=== PATIENT | female | born 2000 | race African-American/Black ===

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

== ENCOUNTER 2018-07-13 11:36 | Emergency (ER) | payer SELFPAY ==
[2018-07-13] MEDS ORDERED: IBUPROFEN 600 MG TABLET PO ONE (12:21)
--- NOTE | 2018-07-13 12:23 | ER Document Report ---
Addendum entered and electronically signed by CALVIN CIFUENTES NP 07/13/18 13:47: Discharge - Discharge Clinical Impression: Pyelonephritis Condition: Stable Disposition: HOME, SELF-CARE Instructions: Pyelonephritis ([facility]) Additional Instructions: Take medication as prescribed. Drink lots of fluids. Follow-up if not better in 2-3 days, sooner for worsening pain, fever, persistent vomiting, trouble cont rolling bowels or bladder, weakness, any further concerns. Prescriptions: Cephalexin Monohydrate [Keflex 500 mg Capsule] 500 mg PO Q6H 10 Days #40 capsule Naproxen [Naprosyn] 500 mg PO BID #20 tablet Phenazopyridine HCl [Pyridium 200 mg Tablet] 200 mg PO TID #9 tablet Forms: Return to Work, Parent Work Note Referrals: [facility] [Provider Group] - Follow up as needed Original Note: ED Neck/Back Problem - General Chief Complaint: Back Pain Stated Complaint: BACK PAIN Time Seen by Provider: 07/13/18 12:17 Mode of Arrival: Ambulatory Information source: Patient TRAVEL OUTSIDE OF THE [place] IN LAST 30 DAYS: No - HPI Patient complains to provider of: Pain, Lower back Notes: Patient is here with complaints of low back pain. She also complains of some dysuria, urinary frequency. She states that the urinary symptoms started approximately 3 days ago she started having some lower back pain mainly on the right yesterday. She complains of some mild suprapubic pain as well. No nausea, vomiting, diarrhea. No fevers. No vaginal bleeding or discharge. No rash. No injury. Pain in her back is not worse with movement, but does seem to be worse if she gets adrian. She denies any numbness, tingling, weakness to her legs. She is not on blood thinning medications. She denies IV drug use. She denies any numbness, tingling, weakness. No bowel or bladder dysfunction. No chest pain or shortness of breath. She denies any other complaints at this time. Pain in her back is constant, moderate, worse with getting adrian, nothing seems to make it better. - Related Data Allergies/Adverse Reactions: No Known Allergies Allergy (Verified 07/13/18 11:46) Past Medical History - Social History Smoking Status: Unknown if Ever Smoked Family History: Arthritis, Malignancy, Thyroid Disfunction Patient has suicidal ideation: No Patient has homicidal ideation: No Renal/ Medical History: Denies: Hx Peritoneal Dialysis - Immunizations Immunizations up to date: Yes Hx Diphtheria, Pertussis, Tetanus Vaccination: Yes Review of Systems - Review of Systems -: Yes All other systems reviewed and negative Physical Exam - Vital signs Vitals: Temp Pulse Resp BP Pulse Ox 99.5 F 93 16 114/90 H 98 07/13/18 11:48 07/13/18 11:48 07/13/18 11:48 07/13/18 11:48 07/13/18 11:48 - Notes Notes: GENERAL: alert, cooperative, nontoxic, no distress. HEAD: normocephalic, atraumatic EYES: conjunctiva pink without discharge, no external redness or swelling. EARS: no external swelling, no external redness NOSE: atraumatic, no external swelling MOUTH/THROAT: mucous membranes moist and pink, posterior pharynx without erythema, swelling, exudate. No trismus or drooling. NECK: soft, supple, full range of motion, no meningismus. CHEST: no distress, lungs clear and equal throughout. No wheezing, rales, rhonchi. CARDIAC: regular rate and rhythm, no murmur, normal capillary refill, normal pulses. No peripheral edema noted. ABDOMEN: soft, mild suprapubic tenderness to palpation. No rebound tenderness or guarding. No right lower quadrant tenderness. no pusatile mass. BACK: Mild right-sided CVA tenderness to percussion. Full range of motion. No rash. No midline tenderness, step-offs or crepitus. EXTREMITIES: full range of motion of all extremities. No redness, no swelling. NEURO: alert and oriented A&O x 3, no focal deficits, full range of motion of all extremities. 5 out of 5 flexion and extension of the lower extremities bilaterally. Patellar and Achilles deep tendon reflexes are +2 bilaterally. Normal sensation with no saddle anesthesia. Patient can dorsiflex the great toes bilaterally. PYSCH: appropriate mood, affect. Patient is cooperative. SKIN: pink, warm, dry, no rash. Course - Re-evaluation Re-evalutation: 07/13/18 13:41 Patient is feeling better at this time. Patient here with complaints of dysuria, frequency, suprapubic pain, low back pain. She does have some mild CVA tenderness. Urinalysis shows signs of significant urinary tract infection. Patient likely has early pyelonephritis. She is not vomiting, she is not toxic appearing, she is afebrile and I do believe that she is okay for discharge home with outpatient therapy. She was given a dose of antibiotics in the emergency department. She was also given some ibuprofen. Urine culture has been ordered. She will be discharged home on Keflex, Pyridium, Naprosyn. Instructions to drink plenty of fluids. Follow-up if not improving in the next 2-3 days, but follow-up sooner for worsening pain, high fever, persistent vomiting, or for any further concerns. Patient has no other signs of cauda equina, epidural abscess/bleed, discitis, osteomyelitis. The patient's emergency department workup and current diagnosis were explained to the patient and or family. Follow-up instructions were provided. Medications if prescribed were discussed. Instructions for when to return to the emergency department including specific worrisome symptoms were discussed with the patient and/or family. - Vital Signs Vital signs: Temp Pulse Resp BP Pulse Ox 99.5 F 93 16 114/90 H 98 07/13/18 11:48 07/13/18 11:48 07/13/18 11:48 07/13/18 11:48 07/13/18 11:48 - Laboratory Laboratory results interpreted by ca: 07/13/18 12:20 Urine Protein 100 H Urine Ketones TRACE H Urine Blood LARGE H Urine Nitrite POSITIVE H Urine Urobilinogen 2.0 H Ur Leukocyte Esterase MODERATE H Urine Ascorbic Acid 40 H Discharge - Discharge Clinical Impression: Pyelonephritis Condition: Stable Disposition: HOME, SELF-CARE Instructions: Pyelonephritis ([facility]) Additional Instructions: Take medication as prescribed. Drink lots of fluids. Follow-up if not better in 2-3 days, sooner for worsening pain, fever, persistent vomiting, trouble controlling bowels or bladder, weakness, any further concerns. Prescriptions: Cephalexin Monohydrate [Keflex 500 mg Capsule] 500 mg PO Q6H 10 Days #40 capsule Naproxen [Naprosyn] 500 mg PO BID #20 tablet Phenazopyridine HCl [Pyridium 200 mg Tablet] 200 mg PO TID #9 tablet Forms: Return to Work Referrals: [facility] [Provider Group] - Follow up as needed
[2018-07-13 13:02] LABS: APPEARANCE,URINE CLOUDY; BILIRUBIN,URINE NEGATIVE (NEGATIVE); COLOR,URINE AMBER; GLUCOSE, URINE NEGATIVE (NEGATIVE); KETONES,URINE TRACE mg/dL (NEGATIVE); LEUKOCYTE ESTERASE,URINE MODERATE (NEGATIVE); NITRITE,URINE POSITIVE (NEGATIVE); PROTEIN,URINE 100 mg/dL (NEGATIVE); URINE SPECIFIC GRAVITY 1.015
[2018-07-13] MEDS ORDERED: CEPHALEXIN 500 MG CAPSULE PO ONE (13:26)
[2018-07-13 13:57] VITALS: BP 111/55
== END 2018-07-13 13:51 | disposition home or self-care (01) ==
LOC: ER 11:36
DX: N12 Tubulo-interstitial nephritis, not specified as acute or chronic (principal); M54.5 Low back pain; R30.0 Dysuria; R35.0 Frequency of micturition; R10.30 Lower abdominal pain, unspecified
CPT/HCPCS: 81001; 81025; 87086; 87088; 87186; 99283

== ENCOUNTER 2018-09-22 18:42 | Emergency (ER) | payer SELFPAY | END 2018-09-22 20:35 | disposition left against medical advice (07) | LOC: ER 18:42 | DX: Z53.21 Procedure and treatment not carried out due to patient leaving prior to being seen by health care provider (principal) ==

== ENCOUNTER 2019-03-28 08:53 | Emergency (ER) | payer SELFPAY ==
--- NOTE | 2019-03-28 10:02 | ER Document Report ---
ED Medical Screen (RME) - General Chief Complaint: Breast Problem Stated Complaint: FOREIGN BODY Time Seen by Provider: 03/28/19 09:59 Mode of Arrival: Ambulatory Information source: Patient Notes: Patient presents emergency department with complaints that her left breast nipple has a piercing stuck in it. She reports she had a barbell placed a month ago. She reports yesterday she noticed that the skin had overgrown it and it is stuck. She tried to push it through but was unable to. I have greeted and performed a rapid initial assessment of this patient. A comprehensive ED assessment and evaluation of the patient, analysis of test results and completion of the medical decision making process will be conducted by additional ED providers. TRAVEL OUTSIDE OF THE [place] IN LAST 30 DAYS: No - Related Data Allergies/Adverse Reactions: No Known Allergies Allergy (Verified 09/22/18 18:51) Past Medical History Renal/ Medical History: Denies: Hx Peritoneal Dialysis - Immunizations Immunizations up to date: Yes Hx Diphtheria, Pertussis, Tetanus Vaccination: Yes Physical Exam - Vital signs Vitals: Temp Pulse Resp BP Pulse Ox 98.6 F 105 H 16 131/77 H 100 03/28/19 08:59 03/28/19 08:59 03/28/19 08:59 03/28/19 08:59 03/28/19 08:59 Course - Vital Signs Vital signs: Temp Pulse Resp BP Pulse Ox 98.6 F 105 H 16 131/77 H 100 03/28/19 08:59 03/28/19 08:59 03/28/19 08:59 03/28/19 08:59 03/28/19 08:59
[2019-03-28] MEDS ORDERED: LIDOCAINE 1% INJ (10 MG/ML) 10 ML MDV INJ ONE (12:43)
--- NOTE | 2019-03-28 12:44 | ER Document Report ---
HPI - HPI Time Seen by Provider: 03/28/19 09:59 Pain Level: 3 Context: Patient is a 18-year-old female who presents emergency department with a left nipple piercing stuck in her breast. She states that she had the piercing done just prior to Thanksgiving. Denies any fever, body aches, chills. Patient states that she was trying to push it through, but the other and is stuck. - CONSTITUTIONAL Constitutional: DENIES: Fever, Chills - EENT EENT: DENIES: Sore Throat, Ear Pain - NEURO Neurology: DENIES: Headache, Weakness, Vision blurred - CARDIOVASCULAR Cardiovascular: DENIES: Chest pain - RESPIRATORY Respiratory: DENIES: Trouble Breathing, Coughing - GASTROINTESTINAL Gastrointestinal: DENIES: Abdominal Pain, Nausea, Patient vomiting, Diarrhea - REPRODUCTIVE Reproductive: DENIES: : - DERM Skin Color: Normal Notes: Nipple piercing stuck in left breast Past Medical History - General Information source: Patient - Social History Smoking Status: Unknown if Ever Smoked Family History: Arthritis, Malignancy, Thyroid Disfunction Patient has suicidal ideation: No Patient has homicidal ideation: No Renal/ Medical History: Denies: Hx Peritoneal Dialysis - Immunizations Immunizations up to date: Yes Hx Diphtheria, Pertussis, Tetanus Vaccination: Yes Vertical Provider Document - CONSTITUTIONAL Agree With Documented VS: Yes Exam Limitations: No Limitations General Appearance: No Apparent Distress - INFECTION CONTROL TRAVEL OUTSIDE OF THE [place] IN LAST 30 DAYS: No - HEENT HEENT: Atraumatic, Normocephalic, PERRLA - NECK Neck: Normal Inspection - RESPIRATORY Respiratory: No Respiratory Distress - CARDIOVASCULAR Cardiovascular: Regular Rate, Regular Rhythm - REPRODUCTIVE Notes: Left breast nipple piercing noted, hanging out of the left side of her nipple. - MUSCULOSKELETAL/EXTREMETIES Musculoskeletal/Extremeties: FROM - NEURO Level of Consciousness: Awake, Alert, Appropriate Motor/Sensory: No Motor Deficit, No Sensory Deficit - DERM Integumentary: Warm, Dry, No Rash Course - Re-evaluation Re-evalutation: 03/28/19 13:11 Patient's left breast near the nipple area was anesthetized with 10 mils of 1% lidocaine. The piercing was pulled out with forceps. The piercing bar was intact. Will be started on Bactrim. No cellulitis noted. Follow-up precautions were given. Verbal discharge instructions were given to the patient. They verbalized understanding. They are stable for discharge. - Vital Signs Vital signs: Temp Pulse Resp BP Pulse Ox 98.6 F 105 H 16 131/77 H 100 03/28/19 08:59 03/28/19 08:59 03/28/19 08:59 03/28/19 08:59 03/28/19 08:59 Discharge - Discharge Clinical Impression: Foreign body (FB) in soft tissue Condition: Stable Disposition: HOME, SELF-CARE Additional Instructions: You were seen today in the emergency department for a piercing stuck in your left breast. It was removed here in the emergency department and you are being started on antibiotics. Please take all your antibiotics as prescribed. Please follow-up with your primary care provider as needed. If you develop a fever, have worsening symptoms, or if things get worse, please return to the emergency department. Prescriptions: Sulfamethoxazole/Trimethoprim [Bactrim Ds Tablet] 1 each PO BID 7 Days #14 tablet
[2019-03-28] MEDS ORDERED: LIDOCAINE 1% INJ-PF (10 MG/ML) 30 ML SDV INJ ONE (12:53)
[2019-03-28 13:27] VITALS: BP 109/72
== END 2019-03-28 13:27 | disposition home or self-care (01) ==
LOC: ER 08:53
DX: M79.5 Residual foreign body in soft tissue (principal)
CPT/HCPCS: 99283; J3490